=== PATIENT | female | born 1980 | race Caucasian/White ===

== ENCOUNTER 2021-09-01 18:14 | Inpatient (IN) | payer OTHER ==
[~2021-09-01] VITALS: Ht 167.6 cm; Wt 83.6 kg
[2021-09-01 19:50] LABS: BASOPHIL 0.4 % (0-2); EOSINOPHIL 0.9 % (0-5); HCT 32.9 % (37.0-47.0); HGB 10.5 g/dl (12.5-16.0); LYMPHOCYTE 17.8 % (15-48); MCH 31.7 pg (25.0-31.0); MCHC 31.9 g/dL (32.0-36.0); MCV 99.4 fL (78.0-100.0); MONOCYTE 11.6 % (0-12); MPV 8.4 fL (6.0-9.5); NRBC 0; PLT 635 K/uL (150-400); RBC 3.31 M/uL (4.20-5.40); RDW 12.7 % (11.5-14.0)
[2021-09-01 20:12] LABS: LACTIC ACID 1.8 mmol/L (0.4-1.9)
[2021-09-01 20:18] LABS: ALBUMIN 2.7 g/dL (3.4-5.0); BILIRUBIN - TOTAL 0.2 mg/dL (0.2-1.0); CREATININE 0.89 mg/dL (0.51-0.95); GLOBULIN (CALCULATION) 4.1 g/dL; POTASSIUM 4.4 mmol/L (3.5-5.1); TOTAL PROTEIN 6.8 g/dL (6.4-8.2)
[2021-09-02] MEDS ORDERED: VITAMIN D350 MC3 PO (00:12)
[2021-09-02] MEDS ORDERED: TAMOXIFEN CITRA20 MG PO (00:13)
[2021-09-02] MEDS ORDERED: VENLAFAXINE HCL75 M1 PO (00:15)
[2021-09-02 02:19] LABS: BILIRUBIN NEGATIVE (NEGATIVE); BLOOD NEGATIVE Ery/uL (NEGATIVE); CLARITY CLEAR (CLEAR); COLOR YELLOW (YELLOW); GLUCOSE (U) NORMAL (NORMAL); LEUKOCYTES NEGATIVE Leu/uL (NEGATIVE); NITRITE NEGATIVE (NEGATIVE); PROTEIN NEGATIVE (NEGATIVE); SPECIFIC GRAVITY >=1.030 (1.001-1.030); UROBILINOGEN 0.2 mg/dL (0.2-1.0)
[2021-09-02 08:22] LABS: HCT 32.7 % (37.0-47.0); HGB 10.5 g/dl (12.5-16.0); MCH 32.1 pg (25.0-31.0); MCHC 32.1 g/dL (32.0-36.0); MPV 8.4 fL (6.0-9.5); RBC 3.27 M/uL (4.20-5.40); RDW 12.5 % (11.5-14.0); WBC 7.7 K/uL (4.0-10.5)
[2021-09-02 08:37] LABS: ALBUMIN 2.3 g/dL (3.4-5.0); BILIRUBIN - TOTAL 0.2 mg/dL (0.2-1.0); BUN/CREAT RATIO (CALC) 17.1 RATIO; CREATININE 0.82 mg/dL (0.51-0.95); GLOBULIN (CALCULATION) 3.9 g/dL; MAGNESIUM 1.9 mg/dL (1.8-2.4); PHOSPHORUS 3.1 mg/dL (2.6-4.7); POTASSIUM 4.1 mmol/L (3.5-5.1); TOTAL PROTEIN 6.2 g/dL (6.4-8.2)
[2021-09-03] MEDS ORDERED: CLONAZEPAM0.5 MG PO (14:20)
[2021-09-03] MEDS ORDERED: DOXYCYCLINE MO100 MG PO (14:41)
== END 2021-09-03 19:15 | disposition home or self-care (01) | DRG 921 ==
LOC: FER 18:14 → FMS 22:35
PROVIDERS: Nurse Practitioner; Nurse Practitioner Family; ADMIT Internal Medicine
DX: T81.31XA Disruption of external operation (surgical) wound, not elsewhere classified, initial encounter (principal); F41.8 Other specified anxiety disorders; Z20.822 Contact with and (suspected) exposure to COVID-19; E66.9 Obesity, unspecified; F17.200 Nicotine dependence, unspecified, uncomplicated; Z90.13 Acquired absence of bilateral breasts and nipples; Z85.3 Personal history of malignant neoplasm of breast; Z88.1 Allergy status to other antibiotic agents; Z79.899 Other long term (current) drug therapy; Z71.6 Tobacco abuse counseling; Z68.29 Body mass index [BMI] 29.0-29.9, adult
CPT/HCPCS: 36415; 71250; 80053; 80202; 81003; 83605; 83615; 83735; 84100; 84145; 85025; 87040; 87070; 87077; 87186; 87205; 94010; J2060; J2543; J3370; J7030; J7050; U0002